=== PATIENT | female | born 1990 ===

== ENCOUNTER → 2024-10-17 08:03 | Outpatient (CLI) | payer OTHER, MEDICAID, SELFPAY ==
[2024-10-17 09:10] LABS: Add Manual Diff / Slide Review NO; Basophils Absolute Auto 0 /uL (0-100); Basophils Percent Auto 0.6 % (0-2); Eosinophils Absolute Auto 300 /uL (0-450); Eosinophils Percent Auto 3.6 % (2-4); Hematocrit 33.1 % (36-46); Lymphocytes Absolute Auto 2400 /uL (1100-4500); Lymphocytes Percent Auto 28.4 % (25-40); Mean Corpuscular HGB Conc 33.2 % (30-36); Mean Corpuscular Hemoglobin 27.1 PG (26-34); Mean Corpuscular Volume 81.7 fL (80-100); Monocytes Absolute Auto 700 /uL (0-900); Monocytes Percent Auto 7.9 % (3-14); Neutrophils Absolute Auto 5000 /uL (1500-7000); Neutrophils Percent Auto 59.5 % (50-75); Platelet Count 303 X10^3/uL (150-400); Red Blood Cell Count 4.05 X10^6/uL (4.0-5.2); Red Cell Distribution Width 13.4 % (11.6-14.8); White Blood Cell Count 8.5 X10^3/uL (4.5-11.0)
[2024-10-18 04:10] LABS: RPR Screen Non Reactive (Non Reactive)
[2024-10-18 09:11] LABS: Varicella IgG Antibody Reactive (Non Reactive)
[2024-10-18 15:27] LABS: Hepatitis B Surface Antigen NEGATIVE s/c (NEGATIVE); Rubella Antibody IgG 68.7 IU/mL (>15)
[2024-10-18 15:58] LABS: HIV 1 & 2 Ab/Ag 4th Gen Combo NEGATIVE (NEGATIVE); Hep C Virus Ab w/Reflex Quant NEGATIVE s/c (NEGATIVE)
== END ==
PROVIDERS: PCP Family Medicine; Referring Provider Family Medicine; Visit Provider Family Medicine
DX: Z34.02 Encounter for supervision of normal first pregnancy, second trimester (principal); Z3A.16 16 weeks gestation of pregnancy
CPT/HCPCS: 36415; 80055; 86787; 86803; 86850; 86900; 86901; 87389

== ENCOUNTER → 2024-10-30 11:01 | Outpatient (CLI) | payer OTHER, SELFPAY ==
--- NOTE | 2024-10-30 11:03 | DI.US.S_ITS ---
PROCEDURE: US OB >= 14 WEEKS FETUS INDICATIONS: anatomy scan OUTSIDE/PRIOR DATING DATA: Last menstrual period (LMP): Unknown. LMP-based estimated date of delivery (KAYLA): Unknown. First dating scan (date and location): 08/16/2024. Estimated date of delivery (KAYLA) from first dating scan: 03/21/2025. The calculations are made using the ultrasound KAYLA of 03/21/2025. TECHNIQUE: Real-time scanning was performed of the fetus, with image documentation and biometric measurements. Endovaginal scanning: Not performed COMPARISON: None. FINDINGS: General: A single living intrauterine gestation is present. Presentation: Variable. Placenta: Placental position is posterior , without previa. Amniotic fluid index: 14.3 cm, normal range is 5-24 cm. Single deepest vertical pocket is 4.1 cm. heart rate: 144 beats per minute. Maternal cervical canal: 3.2 cm long. Normal lower limit is 2.5 cm. biometrics: Biparietal diameter: 4.0 centimeters, 18 weeks 1 day Head circumference: 14.1 centimeters, 17 weeks 3 days Abdominal circumference: 13.0 centimeters, 18 weeks 4 days Femur length: 2.3 centimeters, 17 weeks 0 days Clinically estimated gestational age: 18 weeks 2 days Composite gestational age from present scan: 17 weeks 6 days Estimated weight and percentile: 208 grams, 17 percent Anatomic survey: Neuro: Ventricles are non-dilated at less than 10 mm. Cisterna magna is normal at 3-11 mm. Cerebellum is normal in size and morphology. Nuchal skin fold: Normal at less than 6 mm between 14-21 weeks gestational age. Face: Nose and lips, facial profile are normal. Spine: Sagittal spine is not well seen.. Heart: Four-chamber heart and outflow tracts are not well seen. Diaphragm: Diaphragm is intact. Stomach: Left-sided stomach is present. Kidneys: No hydronephrosis. Normal is less than 5 mm in 2nd trimester, less than 7 mm in 3rd trimester. Cord: 3-vessel cord has orthotopic insertion. Bladder: Normal in size. Extremities: All 4 extremities identified. IMPRESSION: 1. Single live intrauterine consistent with 17 weeks and 6 days. Estimated weight is in the 17th percentile, recommend attention on follow-up. 2. Sagittal spine and heart and outflow tracts are not well seen, recommend short-term follow-up ultrasound. Remainder of the anatomic survey is within normal limits. We strive to produce accurate, complete, and clear reports of imaging services. To assist us in improving patient care, this report was composed using standard report templates and voice recognition software. Therefore, it may contain abnormal punctuation, insertions and/or omissions. Occasional wrong-word or sound-alike substitutions may occur. Though we review the report and make efforts to correct it, we do recommend that the report be read carefully in proper context to recognize any text inaccuracies. Dictated by: Orion Parkinson M.D. on 10/31/2024 at 9:59 Approved by: Orion Parkinson M.D. on 10/31/2024 at 10:05
== END ==
PROVIDERS: PCP Physician Assistant; Referring Provider Family Medicine; Visit Provider Family Medicine
DX: Z34.92 Encounter for supervision of normal pregnancy, unspecified, second trimester (principal); Z3A.17 17 weeks gestation of pregnancy
CPT/HCPCS: 76811

== ENCOUNTER → 2024-11-20 08:37 | Outpatient (CLI) | payer OTHER, SELFPAY ==
--- NOTE | 2024-11-20 08:38 | DI.US.S_ITS ---
PROCEDURE: US OB FOLLOW UP INDICATIONS: FOLLOW UP HEART AND SPINE OUTSIDE/PRIOR DATING DATA: Last menstrual period (LMP): Unknown. LMP-based estimated date of delivery (KAYLA): Unknown. First dating scan (date and location): 09/13/2024. Estimated date of delivery (KAYLA) from first dating scan: 03/31/2025. The calculations are made using the ultrasound KAYLA of 03/31/2025. TECHNIQUE: Real-time scanning was performed of the fetus, with image documentation. COMPARISON: [facility], US, US OB >= 14 WEEKS FETUS, 10/30/2024, 11:17. FINDINGS: A single living intrauterine gestation is present. Presentation: Breech. Placenta: Placental position is posterior, without previa. Amniotic fluid index: 14 cm, normal range is 5-24 cm. Single deepest vertical pocket is 4.1 cm. heart rate: 133 beats per minute. Maternal cervical canal: 4.6 cm long. Normal lower limit is 2.5 cm. Clinically estimated gestational age: 21 weeks 2 days Other: 4 chambered heart, outflow tracts as well as spine are within normal limits. There is a focus echogenicity along the anterior aspect the placenta. IMPRESSION: Single live intrauterine with gestational age of 21 weeks 2 days. Spine, heart, outflow tracts and spine are within normal limits. Focus of echogenicity along the anterior placenta. This is overall nonspecific. While this could represent area of contraction, other etiology such as placental ;ezio or redundancy cannot be definitively excluded attention to this region on follow-up imaging is recommended. Dictated by: Yenifer Otero M.D. on 11/20/2024 at 21:49 Transcribed by: BETO on 11/20/2024 at 21:51 Approved by: Yenifer Otero M.D. on 11/29/2024 at 21:31
== END ==
PROVIDERS: PCP Physician Assistant; Referring Provider Family Medicine; Visit Provider Family Medicine
DX: Z36.2 Encounter for other antenatal screening follow-up (principal); Z3A.21 21 weeks gestation of pregnancy
CPT/HCPCS: 76816; 76817

== ENCOUNTER 2024-12-19 17:36 | Outpatient (CLI) | payer OTHER, SELFPAY ==
[2024-12-19 18:38] LABS: Appearance Urine UA CLEAR; Bilirubin Urine UA NEGATIVE (NEGATIVE); Color Urine UA YELLOW; Glucose Urine UA NEGATIVE (Negative); Ketones Urine UA NEGATIVE (NEGATIVE); Leukocyte Esterase Urine UA TRACE (NEGATIVE); Nitrite Urine UA NEGATIVE (Negative); Occult Blood Urine UA NEGATIVE (Negative); Protein Urine UA NEGATIVE (Negative); Specific Gravity Urine UA 1.015 (1.000-1.035); Urobilinogen Urine UA 0.2 E.U./dL (0.2)
[2024-12-19 18:57] LABS: Amorphous Sediment Urine 1+; Bacteria Urine Few (2-10); Culture Indicated Urine Specimen Cultured; RBC Urine 0-1/HPF (0-5/HPF); Squamous Epithelial Cell Urine 1-5 /HPF (0-5/HPF); Urine Volume 10mL (spun); WBC Urine 1-5/HPF (0-5/HPF)
== END 2024-12-19 19:15 | disposition home or self-care (01) ==
LOC: OB 12-20 09:46
PROVIDERS: PCP Physician Assistant; Referring Provider Family Medicine; Visit Provider Family Medicine
DX: O36.8120 Decreased fetal movements, second trimester, not applicable or unspecified (principal); O26.892 Other specified pregnancy related conditions, second trimester; R10.9 Unspecified abdominal pain; Z3A.24 24 weeks gestation of pregnancy
CPT/HCPCS: 59025; 81001; 87086; G0378; G0379

== ENCOUNTER 2025-01-05 18:02 | Outpatient (CLI) | payer OTHER, SELFPAY | END 2025-01-05 18:46 | disposition home or self-care (01) | LOC: OB 01-07 14:42 | PROVIDERS: PCP Physician Assistant; Referring Provider Student in an Organized Health Care Education/Training Program; Visit Provider Student in an Organized Health Care Education/Training Program | DX: O26.892 Other specified pregnancy related conditions, second trimester (principal); R10.9 Unspecified abdominal pain; Z3A.27 27 weeks gestation of pregnancy | CPT/HCPCS: 59025; 81003; 81015; 87086; 99282; G0378; G0379 ==

== ENCOUNTER 2025-01-05 18:48 | Emergency (ER) | payer OTHER, SELFPAY ==
[2025-01-05 19:02] VITALS: BP 104/64; PULSE 88; RESP 17; TEMP 36.1; O2SAT 100; BMI 26.6
--- NOTE | 2025-01-05 19:25 | PC.NURSE ---
Pt left ER to walk dogs.
--- NOTE | 2025-01-05 19:49 | PC.NURSE ---
Called pt multiple times to return to ER. No response or return call.
[2025-01-05 20:01] LABS: Bacteria Urine Moderate (10-30); Culture Indicated Urine Cult Not Indicated; RBC Urine 5-10/HPF (0-5/HPF); Squamous Epithelial Cell Urine 0-1 /HPF (0-5/HPF); Urine Volume 10mL (spun); WBC Urine 0-1/HPF (0-5/HPF)
== END 2025-01-05 19:30 | disposition left against medical advice (07) ==
PROVIDERS: Emergency Provider Student in an Organized Health Care Education/Training Program; PCP Physician Assistant
DX: R10.9 Unspecified abdominal pain (principal); R30.0 Dysuria
CPT/HCPCS: 81003; 81015; 87086; 99282

== ENCOUNTER → 2025-03-27 16:51 | Outpatient (CLI) | payer OTHER, SELFPAY ==
[2025-03-28 12:00] LABS: Strep Grp B PCR NEG for Grp B Strep
== END ==
LOC: LAB 16:52
PROVIDERS: PCP Physician Assistant; Visit Provider Family Medicine
DX: Z36.85 Encounter for antenatal screening for Streptococcus B (principal)
CPT/HCPCS: 87653

== ENCOUNTER 2025-04-02 21:30 | Inpatient (IN) | payer OTHER, SELFPAY ==
[2025-04-02 22:24] VITALS: BP 124/81
[2025-04-02 23:52] LABS: Add Manual Diff / Slide Review NO; Basophils Absolute Auto 100 /uL (0-100); Basophils Percent Auto 0.8 % (0-2); Eosinophils Absolute Auto 200 /uL (0-450); Eosinophils Percent Auto 1.5 % (2-4); Hematocrit 31.6 % (36-46); Hemoglobin 10.3 g/dL (12.0-16.0); Lymphocytes Absolute Auto 3000 /uL (1100-4500); Lymphocytes Percent Auto 19.6 % (25-40); Mean Corpuscular HGB Conc 32.6 % (30-36); Mean Corpuscular Hemoglobin 27.6 PG (26-34); Mean Corpuscular Volume 84.6 fL (80-100); Monocytes Absolute Auto 1200 /uL (0-900); Monocytes Percent Auto 7.6 % (3-14); Neutrophils Absolute Auto 10900 /uL (1500-7000); Neutrophils Percent Auto 70.5 % (50-75); Platelet Count 265 X10^3/uL (150-400); Red Blood Cell Count 3.74 X10^6/uL (4.0-5.2); Red Cell Distribution Width 14.4 % (11.6-14.8); White Blood Cell Count 15.5 X10^3/uL (4.5-11.0)
[2025-04-03] MEDS: miSOPROStoL 25 MCG TABLET 50 MCG PO (00:13)
[2025-04-03] MEDS: fentaNYL 100 MCG/2 ML INJ 50 MCG IV ×2 (00:48→02:08)
[2025-04-03 01:14] LABS: Alanine Aminotransferase 18 IU/L (<35); Albumin 3.5 g/dL (3.5-5.0); Albumin Globulin Ratio 1.2 (1.0-2.8); Alkaline Phosphatase 192 U/L (38-126); Aspartate Aminotransferase 26 IU/L (14-36); BUN Creatinine Ratio 22.2 (6-22); Bilirubin Total 0.4 mg/dL (0.2-1.3); Blood Urea Nitrogen 10 mg/dL (7-17); Calcium 8.4 mg/dL (8.4-10.2); Carbon Dioxide 21 mmol/L (22-32); Chloride 107 mmol/L (98-107); Estimated Glomerular Filt Rate > 60 mL/min (>60); Globulin 2.9 g/dL (1.7-4.1); Glucose 95 mg/dL (70-99); HEMOLYSIS < 15 (0-50); Potassium 3.9 mmol/L (3.4-5.1); Sodium 134 mmol/L (137-145); Total Protein 6.4 g/dL (6.3-8.2)
[2025-04-03] MEDS: ACETAMINOPHEN IV 1,000 MG/100 ML VIAL 400 MG IV (04:37)
--- NOTE | 2025-04-03 04:37 | PM.AN.REGBLK ---
[facility] <Kaleigh Fields CRNA - Last Filed: 04/03/25 04:45> Pre-procedure Procedure: Continuous Lumbar Epidural for L&D (CSE) Attending OB provider: Lalitha Santos PMH/ROS narrative: , spontaneous labor. Very uncomfortable, requesting epidural. ROS negative with exception of past history of [place]. States she has not used alcohol for 3.5 yrs. Smokes 1/2ppd. PSH/Anesthesia history narrative: States she is sensitive to anesthesia Exam narrative: Mall II, good dentition. ASA Class: II Labs: Hct 31.6 % (36-46) L 04/02/25 23:41 Plt Count 265 X10^3/uL (150-400) 04/02/25 23:41 Medications: Current Medications Generic Name Dose Route Start Last Admin Trade Name Freq PRN Reason Stop Dose Admin Carboprost Tromethamine 250 mcg 04/02/25 21:57 Carboprost 250 Mcg/Ml Ampul IM Q90M PRN Bleeding Diphenhydramine HCl 25 mg 04/03/25 04:35 Diphenhydramine 50 Mg/Ml Vial IV Q10M PRN Pruritis Ephedrine Sulfate 10 mg 04/03/25 04:35 Ephedrine 50 Mg/Ml Vial IV Q5M PRN Blood pressure decrease more than 20% of baseline. Fentanyl 50 mcg 04/02/25 21:57 04/03/25 02:08 Fentanyl 100 Mcg/2 Ml Inj IV 50 mcg Q1H PRN Administration Pain, Moderate (4-6) Lactated Ringer's 1,000 mls @ 100 mls/hr 04/02/25 22:00 Lactated Ringers IV 04/03/25 07:59 CONT MELANIE Oxytocin/Lactated Ringer's 30 unit in 500 mls @ 200 mls/hr 04/02/25 21:57 Oxytocin Premix IV CONT PRN Bleeding Protocol Oxytocin/Lactated Ringer's 30 unit in 500 mls @ 2 mls/hr 04/02/25 22:00 Oxytocin Premix IV TITRATE MELANIE Protocol 2 MILLIUNIT/MIN Tranexamic Acid 1,000 mg/ 100 mls @ 600 mls/hr 04/02/25 21:57 Sodium Chloride IV NOW PRN Bleeding FENT 2MCG/ML BUPIV 0.125% EPI 200 mcg in 100 mls @ 10 mls/hr 04/03/25 04:45 Fentanyl/Bupiv/Ns 2mcg/Ml - 0.125% EPIDURAL CONT MELANIE Lidocaine HCl 20 ml 04/02/25 21:57 Lidocaine 1% 20 Ml INJ INTRA-OP PRN Post Delivery Methylergonovine Maleate 0.2 mg 04/02/25 21:57 Methylergonovine 0.2 Mg/Ml Vial IM NOW PRN Bleeding Methylergonovine Maleate 0.2 mg 04/02/25 21:57 Methylergonovine 0.2 Mg Tablet PO Q6HR PRN Heavy Bleeding Mineral Oil 30 ml 04/02/25 21:57 Mineral Oil 30 Ml Udc TOP PRN PRN Version Misoprostol 400 mcg 04/02/25 21:57 Misoprostol 200 Mcg Tablet SL NOW PRN Bleeding Misoprostol 50 mcg 04/02/25 21:57 04/03/25 00:13 Misoprostol 25 Mcg Tablet PO 50 mcg Q4H PRN Administration cervical ripening Misoprostol 800 mcg 04/02/25 21:57 Misoprostol 200 Mcg Tablet WV NOW PRN Bleeding Nalbuphine HCl 2.5 mg 04/03/25 04:35 Nalbuphine 20 Mg/Ml Ampul IV Q10M PRN Pruritis Naloxone HCl 0.2 mg 04/02/25 21:57 Naloxone 0.4 Mg/Ml Vial IV Q2MIN PRN Opiate Reversal Ondansetron HCl 4 mg 04/02/25 21:57 Ondansetron 4 Mg/2 Ml Inj IV Q4HR PRN Nausea And Vomiting Oxytocin 10 unit 04/02/25 21:57 Oxytocin 10 Unit/Ml Vial IM NOW PRN Bleeding Allergies: Allergies Allergy/AdvReac Type Severity Reaction Status Date / Time Sulfa (Sulfonamide AdvReac Intermediate Hives Verified 02/20/25 16:29 Antibiotics) Procedure Insertion date: 04/03/25 Insertion time: 03:56 Prep/Local: 1% lidocaine (chlorhex skin prep, dry x 3 min) Interspace: L4-5 Patient position: sitting Needle: 17 gauge Tuohy Loss of resistance with: saline YADIEL at (cm): 6 Catheter placed at SKIN (cm): 12 Catheter in SPACE (cm): 6 Sensory level: T10 Insertion: No CSF, No Blood, No Paresthesia with insertion, No Paresthesia with injection and No Test dose reaction Initial Medications TEST DOSE time: 04:10 BOLUS DOSE time: 04:00 BOLUS DOSE (mL): 1 BOLUS DOSE med: other (2.5mg 0.75% bupiv, introducer, spinal needle. Neg pares/heme, pos CSF a/p injection) Infusion Initial rate (mL/hr): 10 Post-procedure Anesthesia date START: 04/03/25 Anesthesia time START: 03:42 <Siria Bansal CRNA - Last Filed: 04/03/25 17:01> Infusion Subsequent interventions: 1215 Lalitha in to rupture membranes. Top off of 10mL 2% Lidocaine in 2 divide doses 10 minutes apart. Post-procedure Anesthesia date END: 04/03/25 Anesthesia time END: 16:57 Post-procedure Anesthesia Assessment: Yes CV function: HR/BP stable, Yes Resp function: RR/sat/airway adequate, Yes Post-op hydration adequate, Yes Pain control adequate, Yes Nausea & vomiting absent, Yes Temperature > 36 C, Yes Mental status appropriate and No Anesthesia complications
[2025-04-03] MEDS: LACTATED RINGERS 1,000 ML 100 ML IV ×3 (04:46→12:25)
--- NOTE | 2025-04-03 07:30 | P.HPOB_ITS ---
OB HPI Date/Time Date of admission: 04/02/25 Date Patient Seen: 04/03/25 Time Patient Seen: 09:00 History of Present Condition Chief complaint: induction KAYLA Calculator 2 Estimated Delivery Date Method Current WG Current Estimate 03/31/25 Ultrasound #1 40w 3d Other Estimates 04/04/25 LMP (Uncertain) 39w 6d Estimated Gestational Age (weeks): 40w3d : 3 Para: 0 Narrative: 34 yo presenting at 40w3d for IOL. DAting by first trimester US incongruent with uncertain LMP by 4 days. has been complicated by inconsistent care (5 visits in total), methylphenidate use throughout for ADHD, Ablify use in for Bipolar 1 d/o, Lorazepam use in early now tapered off. At previous visit, bedside US was completed for position evaluation and showed significant calcification. Discussion held about elective induction due to calcifications and livng location ([place]). She is here today for induction. On arrval noted to be liza every 2-4 min with some concern for SROM prior to arrival. Amnisure negative on arrival. care: limited care Dating criteria OB: based on 1st trimester US only (unknown US ) Ultrasounds: normal 1st trimester US (outside US for dating) and normal mid trimester US (nml anatomy US ) Obstetrical complications: none Medical complications OB: none Preadmission Labs Last OB Lab Results: 2 Blood Type O Positive 04/02/25 23:41 Antibody Screen Negative 04/02/25 23:41 Hct 31.6 % (36-46) L 04/02/25 23:41 Hgb 10.3 g/dL (12.0-16.0) L 04/02/25 23:41 Hep Bs Antigen Negative s/c (NEGATIVE) 10/17/24 08:25 Hepatitis C Antibody Negative s/c (NEGATIVE) 10/17/24 08:25 Rubella Antibody 68.7 IU/mL (>15) 10/17/24 08:25 VZV IgG Antibody Reactive (Non Reactive) 10/17/24 08:25 Group B Strep (PCR) Neg for grp b strep 03/27/25 16:51 Glucose Tolerance Testin hr (pt reported nml at [facility], no official results received ) External Labs -: HBsAG: negative, HIV: negative and RPR/VDLR: negative -: Rubella: immune HCAB: negative Prior (ies) Past Pregnancies Del. Date GA/Weeks Labor Lgth Wt Sex Route Outcome Anesthesia Place Delv Breastfeed Preg Comp Name Unknown 10+ elective 11/14/13 8 elective Delivery Date: Last Updated by: Marcia Newman RN D&C, no complications. Conceived w/ Nexplanon in place Delivery Date: 11/14/13 Last Updated by: Marcia Newman RN Rx only, no complications; conceived w/ Nexplanon in place Evaluation Evaluation Baseline heart rate: 130 Variability: Moderate (11-25) monitor accelerations: Present Monitor Decelerations: Absent Contraction Frequency (minutes): 2 Category of Tracing: Reactive Status: Category l PFSH Medical History (Updated 01/20/25 @ 00:01 by ) Pyelonephritis (~10/2023) Wrist fracture Rib fracture Heart murmur Surgical History (Updated 09/25/24 @ 13:14 by Marcia Newman RN) [place] teeth extracted History of removal of skin mole History of dilation and curettage Family History (Updated 09/25/24 @ 13:23 by Marcia Newman RN) Mother Breast cancer Grandmother Alzheimer's dementia Liver cancer Aunt Breast cancer Cervical cancer Positive test for genetic breast cancer susceptibility marker Father No problems noted. Social History marital status: unmarried,single number of children: 0 household members: none lives independently: Yes caregiver/support person: No housing: house pets and animals: Yes (dog) education level: college occupational status: employed current occupational exposures/hazards: Yes special chely needs: No travel history: over 6 months ago seatbelt use: always water heater temp set < 120 deg: Yes working smoke detector in home: Yes fire extinguisher in home: Yes carbon monox detector in home: Yes firearms in home: No do you feel safe at home: Yes Smoking Status: Former smoker Tobacco: How many years used: 6 second hand exposure: Yes (s/o smokes, not around pt) alcohol intake: former substance use type: does not use during the past year weight has: decreased > 10 lbs well-balanced diet: daily or most days daily servings fruits/ve or more times/day caffeine: Yes (cut down recently, now single K-cup pod) Type(s) of exercise: walking Meds Home Medications and Allergies Home Medications Medication Instructions Recorded Confirmed Type aripiprazole 2 mg tablet (Abilify) 2 mg PO DAILY 09/25/24 04/02/25 History vitamin-ferrous sulfate See Rx Instructions .Route .COMPLEX 09/25/24 04/03/25 History 27 mg iron-folic acid 0.8 mg tablet ondansetron 4 mg disintegrating 4 mg PO Q8H #30 tabs 10/17/24 04/02/25 Rx tablet Allergies Allergy/AdvReac Type Severity Reaction Status Date / Time Sulfa (Sulfonamide AdvReac Intermediate Hives Verified 02/20/25 16:29 Antibiotics) OB Exam Narrative Exam Narrative: GEN: Healthy appearing, well-developed, NAD. PSYCH: pt sleeping comfortably HEENT: -Head: NC/AT -Eyes: No discharge or redness CV: warm and well perfused LUNGS: breathing comfortably on RA SKIN: No skin rashes or abnormal lesions MSK: Normal gait. No deformities NEURO: Ambulating with no limitations. No focal deficits Objective Labs 04/02/25 23:41 04/03/25 00:28 Labs: Laboratory Results - last 24 hr 04/02/25 04/03/25 23:41 00:28 WBC 15.5 H RBC 3.74 L Hgb 10.3 L Hct 31.6 L MCV 84.6 MCH 27.6 MCHC 32.6 RDW 14.4 Plt Count 265 Neut % (Auto) 70.5 Lymph % (Auto) 19.6 L [place] % (Auto) 7.6 Eos % (Auto) 1.5 L Baso % (Auto) 0.8 Neut # (Auto) 14353 H Lymph # (Auto) 3000 [place] # (Auto) 1200 H Eos # (Auto) 200 Baso # (Auto) 100 Sodium 134 L Potassium 3.9 Chloride 107 Carbon Dioxide 21 L BUN 10 Creatinine 0.45 L Estimated GFR > 60 BUN/Creatinine Ratio 22.2 H Glucose 95 Calcium 8.4 Total Bilirubin 0.4 AST 26 ALT 18 Alkaline Phosphatase 192 H Total Protein 6.4 Albumin 3.5 Globulin 2.9 Albumin/Globulin Ratio 1.2 Blood Type O Positive Antibody Screen Negative Assessment and Plan Assessment and Plan Assessment and Plan narrative: 34 yo presenting at 40w3d for IOL. DAting by first trimester US incongruent with uncertain LMP by 4 days. has been complicated by inconsistent care (5 visits in total), methylphenidate use throughout for ADHD, Ablify use in for Bipolar 1 d/o, Lorazepam use in early now tapered off. At previous visit, bedside US was completed for position evaluation and showed significant calcification # IOL: - admit to LD - CBC, TS - 1 dose of misoprostol given on arrival overnight, now transitioned to Pitocin for continued augmentation - intermittent monitoring if reassuring - anesthesia consult - GBS negative - Membranes intact, plan to rupture one pt amenable to station appropriate # Bipolar I - continue Abilify Time-Based Coding :: [TOTAL MINUTES] spent with patient and on the chart (including review of chart, obtaining history, exam, reviewing outside data, placing orders, documenting exam and treatment plan, and counseling patient) on [DATE].
[2025-04-03] MEDS: OXYTOCIN PREMIX 30 UNIT/500 ML PLAST..BAG IV (07:50)
[2025-04-03] MEDS: diphenhydrAMINE 50 MG/ML VIAL 25 MG IV (12:26)
[2025-04-03] MEDS: FENT 2MCG/ML BUPIV 0.125% EPI 200 MCG/100 ML PLAST..BAG 10 MCG EPIDURAL (12:27)
[2025-04-03] MEDS: ONDANSETRON 4 MG/2 ML INJ IV (12:52)
[2025-04-03] MEDS: hydrOXYzine HCL 25 MG TABLET PO (14:13)
[2025-04-03] MEDS: MINERAL OIL 30 ML UDC TOP (16:54)
[2025-04-03] MEDS: TRANEXAMIC ACID 1,000 MG in SODIUM CHLORIDE 0.9% 100 ML 600 MG IV (17:04)
--- NOTE | 2025-04-03 17:27 | PM.OBPRVD ---
Events: Meconium Stained Fluid Labor & Delivery Delivery date: 04/17/25 Delivery Time: 16:57 Intrapartal Events: None Cervical ripening method: per misoprostal protocol Induction method: per pitocin protocol Delivery augmentation: rupture of membranes Delivery monitor: external FHT Route of delivery: L&D Laceration Description: None Estimated blood loss (mL): 300 Anesthesia Type: Epidural Narrative: 34yo at 40w3d who presented for scheduled induction of labor and was admitted to Labor and Delivery. She was given a dose of PO mistoprostol and progressed. The patient progressed through the 1st stage over an was started on Pitocin augmentation. ROM occured at 13:17 clear fluid. Pain was controlled with an epidural. The patient progressed through the 2nd stage and delivered a viable male with APGARs 8/9 at 16:57 via TELLO with a nuchal arm. The cord was cut and clamped after a 60 second delay. The placenta delivered with gentle cord traction, and appeared complete. The perineum and vagina were inspected with no lacerations. Needle and sponge counts were correct.? The vagina was inspected and no items were left in situ. PREPROCEDURE DIAGNOSIS: Intrauterine at 40w3d GBS negative RH + POSTPROCEDURE DIAGNOSIS: Intrauterine at 40w3d, delivered Same as preprocedure Plan for aftercare: Routine care
[2025-04-03] MEDS: DERMOPLAST SPRAY 20% 60 ML 1 SPRAY TOP (20:32)
[2025-04-03] MEDS: WITCH HAZEL/GLYCERIN PADS 1 EACH TOP (20:32)
[2025-04-03] MEDS: ACETAMINOPHEN 325 MG TABLET 650 MG PO (20:32)
[2025-04-03] MEDS: IBUPROFEN 600 MG TABLET PO (20:32)
[2025-04-04] MEDS: IBUPROFEN 600 MG TABLET PO ×2 (04:58→11:22)
[2025-04-04] MEDS: ACETAMINOPHEN 325 MG TABLET 650 MG PO ×2 (04:58→11:21)
[2025-04-04 07:40] VITALS: TEMP 36.7
[2025-04-04 07:45] VITALS: TEMP 36.7
--- NOTE | 2025-04-04 14:07 | PM.OBDS.1 ---
Discharge Providers Provider Date of admission: 04/02/25 21:30 Discharge Date: 04/04/25 Primary care physician: Elda Quinonez PA-C Consults: 04/04/25 17:45 Consult to Pipe Fitter Supervisor Maintenance Routine Comment: 04/04/25 19:56 Consult to Pipe Fitter Supervisor Maintenance Routine Comment: Discharge provider: Lalitha Santos MD Summary Hospital Course Date Patient Seen: 04/04/25 Time Patient Seen: 13:00 Hospital Course: 34yo at 40w3d who presented for scheduled induction of labor and was admitted to Labor and Delivery. She was given a dose of PO mistoprostol and progressed. The patient progressed through the 1st stage over an was started on Pitocin augmentation. ROM occured at 13:17 clear fluid. Pain was controlled with an epidural. The patient progressed through the 2nd stage and delivered a viable male with APGARs 8/9 at 16:57 via TELLO with a nuchal arm. The cord was cut and clamped after a 60 second delay. The placenta delivered with gentle cord traction, and appeared complete. The perineum and vagina were inspected with no lacerations. has been complicated by inconsistent care (5 visits in total), methylphenidate use throughout for ADHD, Ablify use in for Bipolar 1 d/o, Lorazepam use in early now tapered off. At previous visit, bedside US was completed for position evaluation and showed significant calcification. Prior to discharge pt noted that she has been inconsistently taking her Abilify. She has been off of Lorazepam since after discovering her . , pain is well controlled. She is ambulating easily. She is . Baby Jae is doing well. She is not interested in control. We discussed recommendation to avoid pregancy for the upcoming year to allow for appropriate healing. We also discussed risks of relying on lactational amenorrhea and rhythm following delivery. Peripartum Data Delivery Method: Natural Vaginal Laceration Description: None complications: none Status at Discharge Cognitive/behavioral status at discharge: oriented Functional status at discharge: independent ambulation Overall status at discharge: patient is back to baseline Time Spent with Patient Time attestation: Total time spent providing and/or coordinating discharge services: Time spent: Less than 30 minutes Objective Labs 04/02/25 23:41 04/03/25 00:28 Exam Vital Signs (past 8 hours): - 04/04/25 07:40 04/04/25 07:45 Temperature 98.1 F 98.1 F Discharge Plan Discharge Plan Patient Disposition: Home Nursing Discharge Comment: Tylenol 650mg given 11:20am 04/04/2025; next dose available at 5:20 04/04/2025, every 6 hours Motrin 600mg given 11:20am 04/04/2025; next dose available at 5:20pm 04/04/2025, every 6 hours Discharge orders & Medications Prescriptions: Continued vit-ferrous sulfat-FA 27 mg iron- 0.8 mg tablet See Rx Instructions .ROUTE .COMPLEX Rx Instructions: per md order aripiprazole [Abilify] 2 mg tablet 2 mg PO DAILY Discontinued ondansetron 4 mg tablet,disintegrating 4 mg PO Q8H Qty: 30 0RF Follow up/Referrals: Lalitha Santos MD [Physician] - (8 week Appt w/ Dr. Santos: Tuesday, May 27 @ 4:30pm) Visit Report/Discharge Packet Instructions: [place] Jaundice, DI for Depression Stand Alone Forms: Discharge: Care, Patient Portal/API, Stroke Signs & Symptoms Discharge Data Primary Care Provider: Elda Quinonez Discharges patient from system. Discharge Date/Time: 04/04/25 16:35
[2025-04-04 15:24] VITALS: BP 114/62; PULSE 79; RESP 18; TEMP 36.7
== END 2025-04-04 16:35 | disposition home or self-care (01) | DRG 560 ==
PROVIDERS: Admitting Provider Family Medicine; PCP Physician Assistant; Referring Provider Family Medicine; Visit Provider Family Medicine
DX: O99.344 Other mental disorders complicating childbirth (principal); F31.9 Bipolar disorder, unspecified; F90.9 Attention-deficit hyperactivity disorder, unspecified type; Z3A.40 40 weeks gestation of pregnancy; Z37.0 Single live birth; Z87.891 Personal history of nicotine dependence; O43.199 Other malformation of placenta, unspecified trimester; O09.33 Supervision of pregnancy with insufficient antenatal care, third trimester; Z88.2 Allergy status to sulfonamides
CPT/HCPCS: 59050; 59200; 59409; 80053; 85025; 86850; 86900; 86901; A9270; G0379; J0131; J1200; J2405; J2590; J3010